=== PATIENT | female | born 1945 | race Caucasian/White ===

== ENCOUNTER 2017-10-08 11:15 | Day surgery (SDC) | payer MEDICARE, SELFPAY ==
[2017-10-08] MEDS: PROPARACAINE 0.5% OPHTH SOL 2 DROPS EYE-OP (11:42)
[2017-10-08 11:46] VITALS: BP 136/65; PULSE 72; RESP 16; TEMP 37.1; O2SAT 98
[2017-10-08] MEDS: CATARACT EYE COMPOUND (10 DROPS/SYRINGE) 3 DROPS EYE-OP (11:58)
--- NOTE | 2017-10-08 12:17 | PM.PREOP ---
Pre-operative Note Interval Note Pre-op Check: History & Physical Reviewed by Physician H&P completed within 30 days and has changed as indicated here:: None
--- NOTE | 2017-10-08 12:18 | PM.OP.1 ---
Procedure & Clinicians Procedure: Date of service: October 08, 2017 Preoperative diagnoses: 1. Complex Right nuclear sclerotic Cataract. 2. Stomach cancer May 2017 status post resection, radiation and chemotherapy. Postoperative diagnoses: 1. Cataract status post phacoemulsification with posterior chamber intraocular lens implant. Complex with use of capsular dye for mature cataractand floppy iris. Procedure: Phacoemulsification with posterior chamber intraocular lens implant with Visudyne dye. Surgeon: Marcella Jain MD Complications: none Specimen: None Implant:+19.5 Blood loss: None Anesthesia: Retrobulbar with monitored standby Anesthesiologist: Dr. Eda M.D. Description of procedure: Patient is a female year old with decreased vision due to cataract which is affecting activities of daily living. She wants surgery to improve vision. She recently finished chemotherapy for stomach cancer and is stable for surgery. Her has limited vision and she is the primary courtesy car driver. She was taken to the operating room and given IV sedation. A retrobulbar block insert consisting of 6 cc of 2% xylocaine without epinephrine mixed half and half with 0.5% Marcaine with 1 cc of hyaluronidase added is placed between the medial and lateral 1/3 of the inferior orbital rim. Lid akinesia is obtain with 1% xylocaine with epinephrine infiltrated along the lid margin. The eye is manually massaged for 30 sec, prepped using Betadine solution, and draped in the usual sterile fashion. Temporal approach was made, a 1 mm side-port incision was made at the 7:30 position. Phenylephrine 1.5% mixed with 1% xylocaine 0.2 cc was placed into the anterior chamber. An air bubble was placed folllowed by Visudyne capsular dye. Poor red reflex present and pupil 5 millimeters even after phenylephrine. Viscoat followed by Natty was then placed. A 2.6 mm clear incision with a 2.6 mm blade was placed at the 170 degree meridian. A 360 degree capsulorrhexis style capsulotomy was then performed with a cystitome needle on a Healon. Extra Viscoat was use to keep the iris from flopping.Hydrodelineation and hydrodissection were performed. The phacoemulsification unit is introduced, and sculpting notice used to groove the central lens. It is then removed in chopping mode. Epi nucleus is removed with epinuclear mode and irrigation aspiration was used to remove the peripheral cortex. The posterior capsule is polished. The intraocular lens is selected, inspected, power confirmed, and placed in the posterior chamber. The pupil was constricted. The wound was stromally hydrated and tested for leaks, there was none and it was left sutureless. Vigamox 0.1 cc was placed into the anterior chamber. Kenalog 0.2 cc was placed in the superior subconjunctival space. A drop of antibiotic and was placed and the eye was patched and shielded. The patient was stable and returned to the recovery room in excellent condition. Dictated by: Marcella Jain MD Copy to: [facility]
[2017-10-08] MEDS: CARBACHOL 1.5 ML VIAL INJ (13:55)
[2017-10-08] MEDS: CHONDROIDTIN/SOD HYALURONATE 1.05 ML SYRINGE INTRAOCULA (13:55)
[2017-10-08] MEDS: BALANCED SALT IRRIG SOLN NO.2 15 ML IRRIG.SOLN IRR (13:55)
[2017-10-08] MEDS: MOXIFLOXACIN OPHTH DROPS 3 ML BOTTLE 2 DROPS INJ (13:56)
[2017-10-08] MEDS: PHENYLEPHRINE/LIDOCAINE 3ML VIAL (OR) EYE-OP (13:56)
[2017-10-08] MEDS: HYALURONATE SODIUM 10 MG/ML SYRINGE INJ (13:56)
[2017-10-08] MEDS: LIDOCAINE 1% W/EPI INJ 20 ML INJ (13:56)
[2017-10-08] MEDS: ERYTHROMYCIN OPHTH 1 GM OINT 1 APPLIC EYE-RIGHT (13:56)
[2017-10-08] MEDS: BALANCED SALT IRRIG SOLN NO.2 500 ML, EPINEPHrine 1 MG IRR (13:57)
[2017-10-08] MEDS: TRIAMCINOLONE 50 MG/5 ML VIAL INJ (13:57)
[2017-10-08] MEDS: LIDOCAINE 2% 4 ML, BUPIVACAINE 0.5% (PF) 4 ML, HYALURONIDASE 150 UNIT INJ (13:57)
[2017-10-08] MEDS: TRYPAN BLUE 0.5 ML SYRINGE INJ (14:02)
[2017-10-08 14:36] VITALS: BP 132/64; PULSE 68; RESP 16; TEMP 36.8; O2SAT 99
--- NOTE | 2017-10-08 14:39 | P.DS_ITS ---
History of Present Illness Chief complaint: 10876 RIGHT CATARACT EXTRACTION Discharge Providers Primary care physician: Tana Le MD Discharge provider: Marcella Jain MD Exam Vital Signs (past 8 hours): Vital Signs - 8 hr 3 10/08/17 11:46 Temperature 98.7 F Pulse Rate 72 Respiratory Rate 16 Blood Pressure 136/65 H Pulse Oximetry 98 Pulse Oximetry 98 Oxygen Delivery Method Room Air Discharge Plan Discharge Plan Patient Disposition: Home, Self-Care Discharge comment: Patch until bedtime and then remove and place drops. Discharge Med Rec/Prescriptions Prescriptions: No Action MULTIVITAMIN (Multivitamin -) 1 cap PO EVERY DAY Qty: 0 RF: 0 [BELLERGAL] BID Qty: 0 RF: 0 [GLUCOCAMINE] Q DAY Qty: 0 RF: 0 zolpidem 5 MG tablet 5 mg PO QDAY Qty: 0 RF: 0 gabapentin 300 mg 300 mg PO TID RF: 0 Discharge Orders: Discharge (Order); Ordered 10/08/17 Ordered By: Marcella Jain Visit Report/Discharge Packet Stand Alone Forms: Cataract Discharge Cristobal, Surgery Discharge Discharge Data Primary Care Provider: Tana Le Attending Provider: Marcella Jain Discharges patient from system. Discharge Date/Time: 10/08/17 14:38
== END 2017-10-08 14:38 | disposition home or self-care (01) ==
PROVIDERS: PCP Family Medicine; Visit Provider Ophthalmology
DX: H25.11 Age-related nuclear cataract, right eye (principal); I10 Essential (primary) hypertension
CPT/HCPCS: J0171; J2704; J3301; J3470